=== PATIENT | female | born 1965 | race Caucasian/White ===

== ENCOUNTER → 2016-06-26 | Outpatient (CLI) | payer BC ==
--- NOTE | 2016-06-26 13:44 | MA ---
Right Diagnostic Digital Mammogram with iCAD Clinical Indications: Follow up status post benign stereotactic microcalcification biopsy. Technique: Digital CC and MLO views. This examination was processed by the iCAD computer-aided detect ion system. Comparison: Recent mammogram. 2015, 2014, 2013, 2012. Breast Density: C, 50-75%. Findings: Suros biopsy clip identified in the right breast 5 - 6 o'clock position with a few developi ng dystrophic coarse microcalcifications which are benign appearing. No suspicious microcalcification s. No new dominant densities, architectural distortion, or new suspicious microcalcifications. Impression: ACR BI-RADS 2: Benign right mammogram. Recommendation: Annual mammograms with next screening bilateral mammograms in September 2016. [facility] will send a result letter to the patient. Negative mammography should not preclude additional workup of a clinically suspicious finding. Findings and recommendations have been discussed with the patient who agrees with the plan. The patient's information is entered into a reminder system with a target due date for her next mammo gram.
== END ==
LOC: CIMAGING 12:45
PROVIDERS: ATTEND Internal Medicine
DX: R92.0 Mammographic microcalcification found on diagnostic imaging of breast (principal)
CPT/HCPCS: G0206

== ENCOUNTER → 2016-11-06 | Outpatient (CLI) | payer BC | LOC: CIMAGING 07:18 | PROVIDERS: ATTEND Internal Medicine | DX: Z12.31 Encounter for screening mammogram for malignant neoplasm of breast (principal) | CPT/HCPCS: G0202 ==

== ENCOUNTER → 2016-12-02 | Outpatient (CLI) | payer BC | LOC: CIMAGING 15:01 | PROVIDERS: ATTEND Internal Medicine | DX: M25.562 Pain in left knee (principal) | CPT/HCPCS: 73562-PO ==

== ENCOUNTER → 2017-11-07 | Outpatient (CLI) | payer BC | LOC: CIMAGING 07:36 | PROVIDERS: ATTEND Internal Medicine | DX: Z12.31 Encounter for screening mammogram for malignant neoplasm of breast (principal) ==

== ENCOUNTER → 2018-06-18 | Outpatient (CLI) | payer BC | LOC: CIMAGING 10:46 | PROVIDERS: ATTEND Internal Medicine | DX: S82.142A Displaced bicondylar fracture of left tibia, initial encounter for closed fracture (principal); M25.561 Pain in right knee | CPT/HCPCS: 73562-PO; 73590-PO ==

== ENCOUNTER → 2018-11-10 | Outpatient (CLI) | payer BC | LOC: CIMAGING 08:08 ==